=== PATIENT | male | born 1955 | race Caucasian/White ===

== ENCOUNTER 2016-11-30 21:34 | Emergency (ER) | payer OTHER ==
[~2016-11-30] VITALS: Ht 185.4 cm; Wt 125.0 kg
[2016-11-30 22:43] LABS: BASOPHILS % (AUTO) 0 % (0-2); EOSINOPHILS # (AUTO) 0.1 10^3uL; EOSINOPHILS % (AUTO) 1 % (0-4); LYMPHOCYTES # (AUTO) 2.2 X10^3; MEAN CORPUSCULAR HEMOGLOBIN 29.2 PG (26.0-34.0); MEAN CORPUSCULAR HGB CONC 33.7 g/dL (31.0-37.0); MEAN CORPUSCULAR VOLUME 87 FL (80-100); MONOCYTES # (AUTO) 0.9 X10^3; MONOCYTES % (AUTO) 8 % (3-11); NEUTROPHILS # (AUTO) 7.8 X10^3; NEUTROPHILS % (AUTO) 70 % (51-67); PLATELET COUNT 230 10^3uL (150-450); WHITE BLOOD COUNT 11.01 10^3uL (4.0-11.0)
[2016-11-30 22:59] LABS: ALBUMIN 4.3 g/dL (3.4-5.0); ANION GAP 14.4 MEQ/L (3-15); CALCULATED IONIZED CALCIUM 3.7 mg/dL (3.8-4.6)
[2016-11-30] MEDS ORDERED: ED- HYDROcodone/ACETAMINOPHEN 5MG/325MG (NORCO) 6 TABLETS/BTL PO ONE (23:20)
[2016-11-30] MEDS ORDERED: KETOROLAC 60 MG/2 ML (TORADOL) VIAL IM ONE (23:20)
[2016-11-30 23:35] VITALS: BP 133/84
== END 2016-11-30 23:38 | disposition home or self-care (01) ==
LOC: ED 21:36
DX: M10.072 Idiopathic gout, left ankle and foot (principal)
CPT/HCPCS: 36415; 73630; 80053; 84550; 85025; 86140; 96372; 99282; J1885; 99283